=== PATIENT | female | born 1950 | race African-American/Black ===

== ENCOUNTER 2016-09-07 11:04 | Day surgery (SDC) | payer MEDICARE, OTHER ==
--- NOTE | ~2016-09-07 | OP ---
Record Of Operation [facility] [address] [place]. [address] NAME: DYLAN MORA : 46 [place] [facility] [place] [id number] AGE: 66 ADM/REG DATE : 09/07/16 MR#: [id number] REPORT SERV DATE: 09/07/16 DICTATED BY: JEIMY VALDOVINOS DATE: 09/07/16 REPORT STATUS : Draft TRANSCRIBED BY: MODSandra DATE: 09/07/16 DATE OF PROCEDURE: 09/07/2016 PREOPERATIVE DIAGNOSIS: Swelling left arm with AV graft. POSTOPERATIVE DIAGNOSIS: Swelling left arm with AV graft. PROCEDURES: 1. Fistulogram. 2. Angioplasty, AV graft. 3. Angioplasty, subclavian vein. FELLOW: Jer. ANESTHESIA: Local with sedation. COMPLICATIONS: None. BLOOD LOSS: Minimal. HISTORY: The patient is a 66-year-old female with swelling and pain in her left arm with an AV graft. It was thought she will benefit from fistulogram with intervention. This was discussed in detail with the patient and family, and they expressed understanding and desired to proceed. PROCEDURE IN DETAIL: The patient was taken to the operating room and placed in the supine position. She was given IV sedation without complication. Left arm was prepped and draped in sterile fashion. 1% lidocaine was infiltrated in the skin and subcutaneous tissue along the graft in the mid upper arm. It was accessed with a micropuncture needle. Wire passed easily. The needle was removed. Micropuncture sheath placed. Fistulogram shows a patent AV graft with stenosis in the stent at the venous anastomosis. The subclavian vein is patent. There is a stent at the subclavian innominate junction, which appears patent and the SVC appears patent. The patient was given 4000 units of heparin intravenously. Wire was placed. The sheath was exchanged for a 6-Macedonian sheath. An 8 x 100 balloon was used to angioplasty the stenosis in the stent in the venous anastomosis. Post fistulogram shows this to be patent with no residual stenosis, however, on these pictures, there is a stenosis seen at the stent in the subclavian vein. A wire was placed. The sheath was exchanged for 7-Macedonian sheath and a 12 x 40 balloon used to angioplasty the stenosis in the stent in the subclavian vein. Post venogram here shows this to be patent with no residual stenosis. Of note, with the balloon inflated. A fistulogram was performed at the mid distal graft anastomosis showing these all to be widely patent with a patent brachial artery as well. This was felt to be an excellent result. The sheath was removed and access closed with 4-0 Monocryl suture. The patient tolerated the procedure well. She was taken to the recovery room in sterile condition. Record Of Operation [address] [place]. [address] NAME: DYLAN MORA : 46 [place] [facility] [place] [id number] AGE: 66 ADM/REG DATE : 09/07/16 MR#: [id number] REPORT SERV DATE: 09/07/16 DICTATED BY: JEIMY VALDOVINOS DATE: 09/07/16 REPORT STATUS : Draft TRANSCRIBED BY: EDEN DATE: 09/07/16 OLEG/EDEN Jeimy Valdovinos M.D. / [id number] CC: Jeimy Valdovinos M.D.
[~2016-09-07 11:04] MED LIST: ALPHAGAN OPH; AMARYL1 MG PO; AMB5 PO; ASPERCREME; AZELASTINE 137 MCG T; BREO ELLIPTA INH; CHLORASEPTIC SPRAY PO; CLARIT10 PO; COMBIGAN0.2 MG/0.5 OP; COREG3 PO; D.O.S.100 MG PO; DEEP SEA 0.65% T; DEMA20 PO; DEPAK250ER PO; DEPAKOT500 PO; DUONEB INH; EPIPEN0.3 IM; EZFE 200200 MG PO; HUMULIN SC; HYDRALAZINE100 MG PO; ISOCHRON40 MG PO; LANTUS SC; LEXAPRO10 PO; LEXAPRO5 MG PO; LIDODERM TOP; LOPERAMIDE PO; LUBRIFRESH OPH; LUMIGAN OPH; MI-ACID PO; MIRTAZAPINE PO; MOBIC7.5 PO; MOMUD PO; MURO1285% OPH; NATURA2 OP; NEUR100 PO; NORCO1 TA1 PO; NOVOLOGMIX SC; ORAPRED15 MG/5 ML OR; PEP20 PO; PHOSLO PO; PRAVACHOL80 MG PO; PREDFORTE OPH; PROTONIX PO; PULMICORT180 MCG INH; RHINOAQ NAS; SINGULAIR1 PO; SODBICAR10 PO; SORB PO; SPS 15 GM/60 ML PO; STOOL SOFTEN100 MG PO; SUCR; SUCR PO; SYMAX-SL0.125 MG PO; VENTOLIN HFA INH; VERELAN240 MG PO; VITAMIN D31000 UNIT PO; VITD PO; VOLTAREN1 % T; Z100 PO; ZANTAC150 MG PO; ZOFRAN8 PO; [UNRECOGNIZED DRUG - OTHER] MT; [UNRECOGNIZED DRUG - OTHER] PO; [UNRECOGNIZED DRUG - OTHER] T; [UNRECOGNIZED DRUG - OTHER] T
[2016-09-07 12:11] LABS: HEMATOCRIT 33.4 % (36.0-48.0); HEMOGLOBIN 10.9 g/dL (12.0-16.0)
[2016-09-07 12:25] LABS: BUN (BLOOD UREA NITROGEN) 66 MG/DL (6-23); CHLORIDE, SERUM 101 MMOL/L (96-112); CO2 (CARBON DIOXIDE) 30 MMOL/L (24-34); GFR AFRICAN AMERICAN 4 ML/MIN (>=60); GFR NON AFRICAN AMERICAN 3 ML/MIN (>=60); GLUCOSE, SERUM 145 MG/DL (60-99); POTASSIUM, SERUM 4.8 MMOL/L (3.5-5.3); SODIUM, SERUM 142 MMOL/L (135-148)
== END 2016-09-07 18:36 | disposition home or self-care (01) ==
LOC: SDC 11:04
PROVIDERS: Surgery
PROC: 05763ZZ Dilation of Left Subclavian Vein, Percutaneous Approach (ICD-10-PCS; 2016-09-07)
PROC: B50WYZZ Plain Radiography of Dialysis Shunt/Fistula using Other Contrast (ICD-10-PCS; principal; 2016-09-07 12:15)
PROC: 057Y3ZZ Dilation of Upper Vein, Percutaneous Approach (ICD-10-PCS; 2016-09-07 12:15)
DX: T82.856A Stenosis of peripheral vascular stent, initial encounter (principal); I12.0 Hypertensive chronic kidney disease with stage 5 chronic kidney disease or end stage renal disease; E11.22 Type 2 diabetes mellitus with diabetic chronic kidney disease; E11.40 Type 2 diabetes mellitus with diabetic neuropathy, unspecified; N18.6 End stage renal disease; J44.9 Chronic obstructive pulmonary disease, unspecified; J45.909 Unspecified asthma, uncomplicated; M19.90 Unspecified osteoarthritis, unspecified site; K21.9 Gastro-esophageal reflux disease without esophagitis; H54.8 Legal blindness, as defined in USA; H18.51 Endothelial corneal dystrophy; D63.1 Anemia in chronic kidney disease; F32.9 Major depressive disorder, single episode, unspecified; F39 Unspecified mood [affective] disorder; Z99.2 Dependence on renal dialysis; Z90.710 Acquired absence of both cervix and uterus; Z88.0 Allergy status to penicillin; Z88.6 Allergy status to analgesic agent; Z88.8 Allergy status to other drugs, medicaments and biological substances; Z91.018 Allergy to other foods; Z91.013 Allergy to seafood; Z79.1 Long term (current) use of non-steroidal anti-inflammatories (NSAID); Z79.51 Long term (current) use of inhaled steroids; Z79.4 Long term (current) use of insulin; Z79.899 Other long term (current) drug therapy; Z90.49 Acquired absence of other specified parts of digestive tract; Z98.51 Tubal ligation status; Z98.890 Other specified postprocedural states
CPT/HCPCS: 36902; 80048; 82962; 85014; 85018; 93005; A9270-GY; C1725; C1769; C1894; J0690; J2250; J3010; Q9967